=== PATIENT | male | born 1985 | race Caucasian/White ===

== ENCOUNTER 2017-10-17 18:49 | Inpatient (IN) | payer OTHER ==
[~2017-10-17] VITALS: Ht 165.1 cm; Wt 70.4 kg
[2017-10-17 20:02] LABS: BASOPHIL % 0.2 % (0-2); PLATELET COUNT 329 x10^3mcL (130-400)
[2017-10-17 20:09] LABS: RED CELL DISTRIBUTION WIDTH 14.9 % (11.5-14.5)
[2017-10-17 20:10] LABS: CALCIUM 8.3 mg/dL (8.5-10.1); CARBON DIOXIDE 24.4 mmol/L (21-32); CHLORIDE SERUM 102 mmol/L (98-107); CREATININE SERUM 0.8 mg/dL (0.7-1.3); GFR1 > 60 mL/min; GLUCOSE SERUM 110 mg/dL (74-106); POTASSIUM SERUM 3.4 mmol/L (3.5-5.1); SODIUM SERUM 137 mmol/L (136-145)
[2017-10-17 20:22] LABS: ALBUMIN 3.9 g/dL (3.4-5.0); ALKALINE PHOSPHATASE 120 U/L (46-116); ALT/SGPT 61 U/L (16-63); AST/SGOT 34 U/L (15-37); BILIRUBIN TOTAL 0.5 mg/dL (0.20-1.00); FREE T4 0.83 ng/dL (0.76-1.46); LIPASE 55 IU/L (73-393)
[2017-10-17 21:04] LABS: UA SPECIFIC GRAVITY <=1.005 (1.005-1.035); microscopic required? YES; urine erythrocyte TRACE (NEGATIVE)
[2017-10-17 21:16] LABS: AMPHETAMINE QUAL UR NONE DETECTED (NEG <=1000)
[2017-10-17 21:29] LABS: MAGNESIUM 2.2 mg/dL (1.8-2.4); PHOSPHOROUS 2.6 mg/dL (2.5-4.9)
[2017-10-17 21:33] LABS: CHOLESTEROL/HDL RATIO 5.2
[2017-10-17 21:38] LABS: T3 TOTAL 0.96 ng/mL
[2017-10-17 21:39] LABS: FREE T4 0.86 ng/dL (0.76-1.46); FREE THYROXINE INDEX 2.1 ug/dL (1.4-4.5); T4(THYROXINE) 6.4 ug/dL (4.7-13.3)
[2017-10-17 22:09] VITALS: BP 130/84
[2017-10-17 22:12] VITALS: Ht 165.1 cm; Wt 70.4 kg
[2017-10-18 06:35] LABS: CALCIUM 7.7 mg/dL (8.5-10.1); CARBON DIOXIDE 25.5 mmol/L (21-32); CHLORIDE SERUM 103 mmol/L (98-107); CREATININE SERUM 1.1 mg/dL (0.7-1.3); GFR1 > 60 mL/min; GLUCOSE SERUM 117 mg/dL (74-106); MAGNESIUM 1.8 mg/dL (1.8-2.4); PHOSPHOROUS 1.8 mg/dL (2.5-4.9); POTASSIUM SERUM 4.1 mmol/L (3.5-5.1); SODIUM SERUM 138 mmol/L (136-145)
[2017-10-18 06:48] VITALS: BP 136/89
[2017-10-18 07:34] LABS: PLATELET COUNT 290 x10^3mcL (130-400)
[2017-10-18 07:41] LABS: BASOPHIL % 0 % (0-2); RED CELL DISTRIBUTION WIDTH 15.6 % (11.5-14.5)
[2017-10-18 08:30] VITALS: BP 119/72
== END 2017-10-18 10:20 | disposition left against medical advice (07) | DRG 52 ==
LOC: ED 18:49 → DU 20:48
PROVIDERS: Emergency Medicine; Family Medicine
DX: G92 Toxic encephalopathy (principal); E87.2 Acidosis; K21.9 Gastro-esophageal reflux disease without esophagitis; E87.6 Hypokalemia; R31.9 Hematuria, unspecified; F43.9 Reaction to severe stress, unspecified; F10.10 Alcohol abuse, uncomplicated; Y90.0 Blood alcohol level of less than 20 mg/100 ml
CPT/HCPCS: 83880; 84439; C9113; G0480; J2060; J2354; J3490; J7030; J7040; Q0092

== ENCOUNTER 2017-10-18 15:59 | Emergency (ER) | payer OTHER ==
[~2017-10-18] VITALS: Ht 167.6 cm; Wt 71.7 kg
[2017-10-18 16:02] VITALS: BP 127/82
== END 2017-10-18 16:24 | disposition left against medical advice (07) ==
LOC: ED 15:59
DX: Z53.21 Procedure and treatment not carried out due to patient leaving prior to being seen by health care provider (principal)

== ENCOUNTER 2017-10-19 08:56 | Emergency (ER) | payer OTHER ==
[~2017-10-19] VITALS: Ht 165.1 cm; Wt 68.5 kg
[2017-10-19 09:10] VITALS: Ht 165.1 cm; Wt 68.5 kg
[2017-10-19 11:15] VITALS: BP 121/82
== END 2017-10-19 10:15 | disposition home or self-care (01) ==
LOC: ED 08:56
DX: F10.239 Alcohol dependence with withdrawal, unspecified (principal); R10.13 Epigastric pain

== ENCOUNTER 2019-01-11 09:34 | Emergency (ER) | payer OTHER ==
[~2019-01-11] VITALS: Ht 167.6 cm; Wt 67.6 kg
[2019-01-11 09:45] VITALS: Ht 167.6 cm; Wt 67.6 kg
[2019-01-11 12:28] VITALS: BP 110/72
== END 2019-01-11 12:28 | disposition home or self-care (01) ==
LOC: ED 09:34
DX: S29.012A Strain of muscle and tendon of back wall of thorax, initial encounter (principal); S39.012A Strain of muscle, fascia and tendon of lower back, initial encounter; K21.9 Gastro-esophageal reflux disease without esophagitis; F10.10 Alcohol abuse, uncomplicated; X58.XXXA Exposure to other specified factors, initial encounter; Y93.89 Activity, other specified; Y92.89 Other specified places as the place of occurrence of the external cause; Y99.8 Other external cause status
CPT/HCPCS: J1885

== ENCOUNTER 2019-08-25 16:30 | Emergency (ER) | payer SELFPAY ==
[~2019-08-25] VITALS: Ht 167.6 cm; Wt 64.0 kg
[2019-08-25 16:35] VITALS: Ht 167.6 cm; Wt 64.0 kg
[2019-08-25 17:15] LABS: BASOPHIL % 0.8 % (0-2); PLATELET COUNT 296 x10^3mcL (130-400); RED CELL DISTRIBUTION WIDTH 13.7 % (11.5-14.5)
[2019-08-25 17:26] LABS: CALCIUM 9.1 mg/dL (8.5-10.1); CARBON DIOXIDE 26.6 mmol/L (21-32); CHLORIDE SERUM 103 mmol/L (98-107); CREATININE SERUM 0.8 mg/dL (0.7-1.3); GFR1 > 60 mL/min; GLUCOSE SERUM 105 mg/dL (74-106); SODIUM SERUM 135 mmol/L (136-145)
[2019-08-25 17:32] LABS: ALBUMIN 3.7 g/dL (3.4-5.0); ALKALINE PHOSPHATASE 94 U/L (46-116); ALT/SGPT 89 U/L (16-63); AST/SGOT 77 U/L (15-37); BILIRUBIN TOTAL 0.86 mg/dL (0.20-1.00); LIPASE 111 IU/L (73-393); TOTAL PROTEIN, SERUM 7.9 g/dL (6.4-8.2)
[2019-08-25 17:49] LABS: UA SPECIFIC GRAVITY >=1.030 (1.005-1.035); microscopic required? YES; urine erythrocyte NEGATIVE (NEGATIVE)
[2019-08-25 18:38] VITALS: BP 121/79
== END 2019-08-25 18:38 | disposition home or self-care (01) ==
LOC: ED 16:30
PROVIDERS: Emergency Medicine
DX: K29.20 Alcoholic gastritis without bleeding (principal); K21.9 Gastro-esophageal reflux disease without esophagitis; F10.10 Alcohol abuse, uncomplicated
CPT/HCPCS: 36415